=== PATIENT | male | born 1995 | race African-American/Black ===

== ENCOUNTER 2020-09-05 18:30 | Emergency (ER) | payer SELFPAY ==
[2020-09-05 18:35] VITALS: BP 145/92; PULSE 79; RESP 18; TEMP 37.3; O2SAT 100
--- NOTE | 2020-09-05 18:59 | ED.DENTAL ---
HPI - Dental/Oral General Chief complaint: Dental/Oral Stated complaint: tooth ache Time Seen by Provider: 09/05/20 18:34 Source: patient Mode of arrival: ambulatory Limitations: no limitations History of Present Illness HPI Narrative: Patient is a 25-year-old male who presents with dental pain for the last couple of days patient notes aching pain to the left upper posterior molars where is a history of gross decay patient has not seen by for this complaint has not taken anything for his pain pain is worse with eating and drinking on arrival patient resting comfortably in the room in no distress Related Data Allergies Allergy/AdvReac Type Severity Reaction Status Date / Time No Known Allergies Allergy Verified 09/05/20 18:37 Review of Systems Review of Systems: All systems reviewed & are unremarkable except as noted in HPI and below PMFSH Social History Social History (Updated 09/05/20 @ 19:04 by Kade Gtz PA-C) Smoking status: Current every day smoker Exam Narrative: Exam Narrative: GENERAL: Well-appearing, well-nourished, and in no acute distress. HEAD: Normocephalic, atraumatic. EYES: PERRLA and EOMI. ENT: Nares clear, no rhinorrhea or epistaxis. Mucous membranes moist. Dental caries to the posterior left upper molars no erythema or swelling of the gum lines. Uvula midline no trismus or drooling NECK: Supple. No adenopathy or masses. CHEST: Clear to auscultation. No respiratory distress. No wheezes rales or rhonchi HEART: Regular rate and rhythm. No murmur heard. EXTREMITIES: Normal range of motion. No edema. SKIN: Warm, dry, no rash. NEURO: No focal deficits. Alert and oriented x3. PSYCH: Normal mood and affect. Course Course Emergency Course: Patient in the room in no distress aware of case findings treatment plan and diagnosis Vital Signs Vital signs: Vital Signs Temperature 99.1 F 09/05/20 18:35 Pulse Rate 79 09/05/20 18:35 Respiratory Rate 18 09/05/20 18:35 Blood Pressure 145/92 H 09/05/20 18:35 Pulse Oximetry 100 09/05/20 18:35 Temperature 99.1 F 09/05/20 18:35 Pulse Rate 79 09/05/20 18:35 Respiratory Rate 18 09/05/20 18:35 Blood Pressure 145/92 H 09/05/20 18:35 Pulse Oximetry 100 09/05/20 18:35 MDM - Dental/Oral MDM Narrative Medical decision making narrative: Paitents pain and complaint coupled with physical findings are consistant with dentalgia. There are no focal signs of space occupying lesions that are compromising to the ariway. The floor of the mouth is soft with no signs of Ludwigs Angina. Patient is without trismus or drooling and able to swallow secreations. Patient is felt appropriate for discharge home with dental follow up. Discharge Plan Discharge Clinical Impression: Dental abscess Patient Disposition: Home, Self-Care Condition: Stable Instructions: Antibiotic Form, Dental Abscess (ED) Additional Instructions: Follow up with your primary care provider within 1-2 days. Go to ER for shortness of breath, difficulty breathing, chest pain, fever/chills, weakness, nauseau/vomitting, unable to swallow or open the mouth etc. or any other concerns. Take any prescribed medications as directed. If you do not have a drug allergy to tylenol or motrin and can tolerate it then take tylenol or motrin as needed for discomfort/pain. Prescriptions: New chlorhexidine gluconate [Peridex] 0.12 % mouthwash 15 ml mucous membrane BID Qty: 1500 RF: 0 amoxicillin 500 mg capsule 500 mg PO Q8H 10 Days Qty: 30 RF: 0 ibuprofen [IBU] 600 mg tablet 600 mg PO Q6H PRN (Reason: fever or pain) Qty: 7 RF: 0 Follow-up/Referrals: PHYSICIAN,VIBRATION ANALYST [Primary Care Provider] - Dental Referral Line [Outside] [facility] [Outside] [facility] [Outside] [facility] [Outside] Stand Alone Forms: Work/School Release IP
== END 2020-09-05 19:20 | disposition home or self-care (01) ==
PROVIDERS: Emergency Provider Emergency Medicine
DX: K04.7 Periapical abscess without sinus (principal); F17.200 Nicotine dependence, unspecified, uncomplicated
CPT/HCPCS: 99283

== ENCOUNTER 2020-11-13 13:19 | Emergency (ER) | payer SELFPAY ==
[2020-11-13 13:21] VITALS: BP 148/90; PULSE 76; RESP 18; TEMP 36.6; O2SAT 100
--- NOTE | 2020-11-13 13:34 | ED.GENADULT ---
HPI - General Adult General Chief complaint: Dental/Oral Stated complaint: Tooth Pain Time Seen by Provider: 11/13/20 13:33 Source: patient Mode of arrival: ambulatory Limitations: no limitations History of Present Illness HPI narrative: Patient is here for further treatment of left upper dental pain. He was seen here in August for the same and has not yet seen a dentist. He denies any fever or drainage. He has pain to hot and cold. He states that he is just started a job and should have dental insurance in November. Related Data Allergies Allergy/AdvReac Type Severity Reaction Status Date / Time No Known Allergies Allergy Verified 11/13/20 13:23 Review of Systems Review of Systems: All systems reviewed & are unremarkable except as noted in HPI and below PMFSH Social History Social History Smoking status: Current every day smoker Exam Const: General: no acute distress HENMT: Head: normal to inspection Teeth and gingiva: fair dentition Teeth image: 1. caries and fracture Other: No facial swelling no pain with pinna tug. Eyes: Pupils: Equal, round and reactive pupils present Neck: Neck: no lymphadenopathy Resp: Effort & Inspection: normal respiratory effort Cardio: Rate: regular rate Rhythm: regular rhythm Skin: General skin exam: normal color Psych: Mental Status: mental status grossly normal Course Course Emergency Course: Recommend the patient see a dentist at the earliest available date, offered to give him referrals to both the dental schools in the area. Outlined care plan of care of [id number] numbing medicine directly to the site and dental wax to make a temporary filling. There is no need for antibiotics at this time. Continue taking 600 to 800 mg of ibuprofen for pain. Patient agrees. Vital Signs Vital signs: Vital Signs Temperature 36.6 C 11/13/20 13:21 Pulse Rate 76 11/13/20 13:21 Respiratory Rate 18 11/13/20 13:21 Blood Pressure 148/90 H 11/13/20 13:21 Pulse Oximetry 100 11/13/20 13:21 Temperature 36.6 C 11/13/20 13:21 Pulse Rate 76 11/13/20 13:21 Respiratory Rate 18 11/13/20 13:21 Blood Pressure 148/90 H 11/13/20 13:21 Pulse Oximetry 100 11/13/20 13:21 Medical Decision Making Vital Signs Vital Signs: Vital Signs Temperature 36.6 C 11/13/20 13:21 Pulse Rate 76 11/13/20 13:21 Respiratory Rate 18 11/13/20 13:21 Blood Pressure 148/90 H 11/13/20 13:21 Pulse Oximetry 100 11/13/20 13:21 Temperature 36.6 C 11/13/20 13:21 Pulse Rate 76 11/13/20 13:21 Respiratory Rate 18 11/13/20 13:21 Blood Pressure 148/90 H 11/13/20 13:21 Pulse Oximetry 100 11/13/20 13:21 Discharge Plan Discharge Clinical Impression: Dental caries, Toothache Patient Disposition: Home, Self-Care Condition: Stable Instructions: Antibiotic Form, Toothache (ED) Additional Instructions: Please use [id number] numbing medication, saturated Q-tip and placed directly on the site then cover that tooth with dental wax. Continue to take ibuprofen for the pain, you may take 600 every 6 hours or 800 mg every 8 hours. Please take with food to avoid GI upset. Follow-up with dentist at the earliest available date for further treatment. There is a dental school in [facility] affiliated with [facility]. There is another dental school in [place] affiliated with [facility]. Please call and make an appointment. Prescriptions: No Action chlorhexidine gluconate [Peridex] 0.12 % mouthwash 15 ml mucous membrane BID Qty: 1500 RF: 0 ibuprofen [IBU] 600 mg tablet 600 mg PO Q6H PRN (Reason: fever or pain) Qty: 7 RF: 0 Follow-up/Referrals: PHYSICIAN,MORTGAGE ACCOUNTING CLERK [Primary Care Provider] - Stand Alone Forms: Work/School Release IP Time of Disposition: 13:54
== END 2020-11-13 13:50 | disposition home or self-care (01) ==
PROVIDERS: Emergency Provider Emergency Medicine
DX: K02.9 Dental caries, unspecified (principal); F17.200 Nicotine dependence, unspecified, uncomplicated
CPT/HCPCS: 99281

== ENCOUNTER 2020-12-16 15:33 | Emergency (ER) | payer SELFPAY ==
--- NOTE | ~2020-12-16 | XR_ITS ---
EXAMINATION: XR chest 2V DATE: 12/16/2020 16:02 INDICATION: Left chest pain. TECHNIQUE: Frontal and lateral views of the chest were obtained. COMPARISON: None. FINDINGS: There is mild scarring at the lung apices. No pleural effusion or pneumothorax. The heart s ize is normal. IMPRESSION: 1. Mild scarring at the lung apices. Reviewed, dictated and finalized at location A. [facility]UCK[facility]
--- NOTE | 2020-12-16 15:34 | ECG_ITS ---
Measurements Intervals [place] Rate: 79 P: 66 ND: 169 QRS: 96 QRSD: 94 T: 51 QT: 370 QTc: 426 Interpretive Statements SINUS RHYTHM MINIMAL Q WAVES- INFERIOR LEADS BASELINE ARTIFACT- I, II, III, AVR, AVL, AVF, V1-V6 BORDERLINE ECG Electronically Signed On 12-16-2020 16:45:48 GUEST RELATIONS AGENT by Ronald Blackwood D.O.
[2020-12-16 15:47] VITALS: BP 154/88; PULSE 84; RESP 15; TEMP 36.8; O2SAT 100
[2020-12-16 15:53] LABS: Basophils Percent Auto 0.5 % (0.2-1.2); Eosinophils Absolute Auto 0.1 K/mm3 (0-0.3); Eosinophils Percent Auto 0.6 % (0-4.4); Hematocrit 42.3 % (42.0-52.0); Hemoglobin 14.6 g/dL (14.0-18.0); Immature Granulocyte Absolute 0.02 K/mm3 (0.00-0.031); Immature Granulocyte Percent A 0.2 % (0-0.5); Immature Platelet Fraction Pct 7.3 % (0.9-11.2); Lymphocytes Absolute Auto 3.07 K/mm3 (0.9-3.2); Lymphocytes Percent Auto 34.9 % (18.3-44.2); Mean Corpuscular HGB Conc 34.5 g/dl (32-36); Mean Corpuscular Hemoglobin 34.3 pg (26-34); Mean Corpuscular Volume 99.3 fl (80-100); Mean Platelet Volume 11.1 fl (7.4-10.4); Monocytes Absolute Auto 0.5 K/mm3 (0.1-0.6); Monocytes Percent Auto 5.6 % (2.6-8.5); Neutrophils Absolute Auto 5.1 K/mm3 (1.3-6.7); Neutrophils Percent Auto 58.2 % (45.5-73.1); Platelet Count Result 140 k/mm3 (150-375); Red Blood Count 4.26 M/mm3 (4.6-6.20); Red Cell Distribution Width 12.7 % (11.5-14.5); White Blood Count 8.8 K/mm3 (4.5-10.0)
[2020-12-16 16:00] LABS: INR 0.9; Prothrombin Time 12.7 Seconds (11.1-14.7)
[2020-12-16 16:01] LABS: Partial Thromboplastin Time 24.5 SECONDS (22.3-36.8)
[2020-12-16 16:03] LABS: Anion Gap 7 mmol/L (8-16); Blood Urea Nitrogen 17 mg/dL (9-20); Calcium 9.5 mg/dL (8.4-10.2); Carbon Dioxide 28 mmol/L (22-30); Chloride 102 mmol/L (98-107); Estimated CRCL calculation 98 ml/min; Estimated Glomerular Filt Rate > 60; Glucose 83 mg/dL (75-110); Potassium 3.6 mmol/L (3.4-5.0); Sodium 137 mmol/L (137-145)
[2020-12-16] MEDS: ASPIRIN 81 MG CHEWABLE TABLET 324 MG PO (16:11)
[2020-12-16 16:15] LABS: Troponin I < 0.012 ng/mL (0.000-0.034)
--- NOTE | 2020-12-16 17:24 | ED.CHESTPAIN ---
HPI - Chest Pain General Chief Complaint: Chest Pain Stated Complaint: chest pain, arm pain Time Seen by Provider: 12/16/20 17:00 Source: patient Mode of arrival: ambulatory Limitations: no limitations History of Present Illness HPI narrative: This is a 25 year old male that presents to the ER for chest pain x 3 hours. Reports the pain started while he was at work. It has been constant, but improved since onset. The pain is achy in nature. Also reports pain in his right hip that has been present for a couple of weeks. Reports his girlfriend recently has a UTI and was worried he may have one too. Denies fever, cough, shortness of breath, abdominal pain, vomiting, dysuria or hematuria. Related Data Allergies Allergy/AdvReac Type Severity Reaction Status Date / Time No Known Allergies Allergy Verified 12/16/20 15:52 Review of Systems Review of Systems: Narrative: CONSTITUTIONAL: Denies fever CARDIOVASCULAR: Reports chest pain. Denies edema. RESPIRATORY: Denies cough or dyspnea. GASTROINTESTINAL: Denies abdominal pain, nausea, vomiting GENITOURINARY: Denies dysuria or hematuria. SKIN: Denies rash MUSCULOSKELETAL: Reports back pain, joint pain, and myalgia. NEUROLOGIC: Denies numbness, or weakness. All systems reviewed & are unremarkable except as noted in HPI and below PMFSH Social History Social History (Updated 12/16/20 @ 17:28 by Kayleigh Loza PA-C) Smoking status: Current every day smoker Substance use: current Substance use type: marijuana Exam Narrative: Exam Narrative: GENERAL: Well-appearing, well-nourished, and in no acute distress. HEAD: Normocephalic, atraumatic. EYES: EOMI. ENT: Mucous membranes moist. Oropharynx without tonsillar hypertrophy exudate or other lesions. NECK: Supple. No adenopathy or masses. CHEST: Clear to auscultation. No respiratory distress. No wheezes rales or rhonchi HEART: Regular rate and rhythm. No murmur heard. Normal peripheral pulses. ABDOMEN: Soft, nontender, nondistended, normal active bowel sounds. EXTREMITIES: Normal range of motion. No edema. SKIN: Warm, dry, no rash. NEURO: No focal deficits. Alert and oriented x3. PSYCH: Normal mood and affect Course Vital Signs Vital signs: Vital Signs Temperature 98.2 F 12/16/20 15:47 Pulse Rate 84 12/16/20 15:47 Respiratory Rate 15 12/16/20 15:47 Blood Pressure 154/88 H 12/16/20 15:47 Pulse Oximetry 100 12/16/20 15:47 Temperature 98.2 F 12/16/20 15:47 Pulse Rate 81 12/16/20 18:57 Respiratory Rate 16 12/16/20 18:57 Blood Pressure 144/78 H 12/16/20 18:57 Pulse Oximetry 100 12/16/20 18:57 MDM - Chest Pain MDM Narrative Medical decision making narrative: Patient presents the emergency department for an episode of chest pain today. Have mostly resolved on arrival to ED. He is afebrile and nontoxic-appearing. Vitals are stable. CBC and metabolic panel without concerning findings. EKG is without concerning changes. Baseline and 3-hour troponin are negative. Chest x-ray without acute findings. Patient was also reporting some pain in his right hip/flank area. Seems to be more musculoskeletal in nature. No signs of infection or blood in the urine. Patient was updated on case findings. His heart score is a 1. He is stable and felt appropriate for further outpatient evaluation. He was given warnings to return to the ER Lab Data Attestation: I reviewed the patient's lab results. Result diagrams: 12/16/20 15:43 12/16/20 15:43 Labs: Lab Results 12/16/20 12/16/20 12/16/20 Range/Units 15:43 15:43 15:43 WBC 8.8 (4.5-10.0) K/mm3 RBC 4.26 L (4.6-6.20) M/mm3 Hgb 14.6 (14.0-18.0) g/dL Hct 42.3 (42.0-52.0) % MCV 99.3 (80-100) fl MCH 34.3 H (26-34) pg MCHC 34.5 (32-36) g/dl RDW 12.7 (11.5-14.5) % Plt Count 140 L (150-375) k/mm3 MPV 11.1 H (7.4-10.4) fl Immature Gran % (Auto) 0.2 (0-0.5) % Neut % (Auto) 5
[2020-12-16 18:43] LABS: Add Urine Microscopic? YES; Appearance Urine Clear (Clear); Bilirubin Urine Negative (Negative); Blood Urine Negative (Negative); Color Urine Yellow (Yellow); Glucose Urine UA Negative (Negative); Ketones Urine 1+ mg/dL (Negative); Leukocyte Esterase Ur Negative LEU/UL (Negative); Mucus Urine Rare /lpf; Nitrate Urine Negative (Negative); Protein Urine 1+ mg/dL (Negative); RBC Urine 0-2 /hpf (0-2); Specific Grav Ur 1.027 (1.001-1.035); WBC Urine 0-3 /hpf
[2020-12-16 18:57] VITALS: BP 144/78; PULSE 81; RESP 16; O2SAT 100
[2020-12-16 19:18] LABS: Troponin I < 0.012 ng/mL (0.000-0.034)
[2020-12-16 20:32] VITALS: BP 140/94; PULSE 61; RESP 18; O2SAT 100
== END 2020-12-16 20:34 | disposition home or self-care (01) ==
PROVIDERS: Physician Assistant; Emergency Provider Emergency Medicine
DX: R07.9 Chest pain, unspecified (principal); F17.210 Nicotine dependence, cigarettes, uncomplicated; R94.31 Abnormal electrocardiogram [ECG] [EKG]
CPT/HCPCS: 36415; 71046; 80048; 81001; 84484; 85025; 85055; 85610; 85730; 93005; 99284; A9270

== ENCOUNTER 2022-07-24 08:24 | Emergency (ER) | payer BC, SELFPAY ==
[2022-07-24 08:27] VITALS: BP 146/80; PULSE 104; RESP 16; TEMP 38; O2SAT 100
[2022-07-24 09:28] LABS: SARS-CoV-2 RNA PCR Positive
--- NOTE | 2022-07-24 09:39 | ED.GENADULT ---
HPI - General Adult General Chief complaint: Unspecified Stated complaint: body aches, joint pain, headache Time Seen by Provider: 07/24/22 08:30 History of Present Illness HPI narrative: 27-year-old male presenting to the emergency department for evaluation of sore throat body aches subjective fever. Patient states that his symptoms started yesterday. Related Data Allergies Allergy/AdvReac Type Severity Reaction Status Date / Time No Known Allergies Allergy Verified 12/16/20 15:52 Review of Systems Review of Systems: CONSTITUTIONAL: See HPI EYES: Denies visual changes, redness, or discharge. ENT: Denies rhinorrhea, congestion, sore throat, or otalgia. CARDIOVASCULAR: Denies chest pain, palpitations, or edema. RESPIRATORY: See HPI GASTROINTESTINAL: Denies abdominal pain, nausea, vomiting, or diarrhea. GENITOURINARY: Denies dysuria or hematuria. SKIN: Denies rash or itching. MUSCULOSKELETAL: Denies back pain, joint pain, or myalgia. NEUROLOGIC: Denies headache, numbness, or weakness. [facility] Social History Social History (Updated 12/16/20 @ 17:28 by Kayleigh Loza PA-C) Smoking status: Current every day smoker Substance use: current Substance use type: marijuana Exam Narrative: APPEARANCE: Ill-appearing HEAD: normocephalic, atraumatic. EYES: PERRLA/EOMI, conjunctivae clear. NOSE: Normal no drainage EARS:TMS clear with good light reflex. THROAT: Pharynx clear, no exudate. NECK: Supple. No adenopathy, no masses. RESPIRATORY: Airway patent, respirations nonlabored. Clear to auscultation bilaterally, no rales, rhonchi, wheezing. CARDIOVASCULAR: Regular rate and rhythm without murmurs rubs or gallops. ABDOMINAL: Soft, nontender, nondistended, normal bowel sounds MUSCULOSKELETAL: Moves all extremities. Strength/ROM intact, No edema, No calf tenderness. NEURO: Alert. Cranial nerves II through XII intact. Grossly intact SKIN: Warm, dry. Normal Color Course Course Emergency Course: Patient was updated on the results of his diagnosis of COVID. Vital Signs Vital signs: Vital Signs Temperature 100.4 F H 07/24/22 08:27 Pulse Rate 104 H 07/24/22 08:27 Respiratory Rate 16 07/24/22 08:27 Blood Pressure 146/80 H 07/24/22 08:27 Pulse Oximetry 100 07/24/22 08:27 Temperature 100.4 F H 07/24/22 08:27 Pulse Rate 76 07/24/22 10:11 Respiratory Rate 13 07/24/22 10:11 Blood Pressure 125/66 07/24/22 10:11 Pulse Oximetry 100 07/24/22 10:11 Medical Decision Making Vital Signs Vital Signs: Vital Signs Temperature 100.4 F H 07/24/22 08:27 Pulse Rate 104 H 07/24/22 08:27 Respiratory Rate 16 07/24/22 08:27 Blood Pressure 146/80 H 07/24/22 08:27 Pulse Oximetry 100 07/24/22 08:27 Temperature 100.4 F H 07/24/22 08:27 Pulse Rate 76 07/24/22 10:11 Respiratory Rate 13 07/24/22 10:11 Blood Pressure 125/66 07/24/22 10:11 Pulse Oximetry 100 07/24/22 10:11 Lab Data Labs: Lab Results 07/24/22 Range/Units 08:47 SARS-CoV-2 RNA (RT-PCR) Positive A Strep Screen Presumptive Negative *(Reference Range: Negative)* Discharge Plan Discharge Clinical Impression: COVID Patient Disposition: Home, Self-Care Condition: Stable Instructions: Antibiotic Form, COVID-19 (Coronavirus Disease 2019) (ED) Additional Instructions: Tylenol and ibuprofen for fever and body aches. Tessalon Perles for cough. Albuterol inhaler for shortness of breath. Quarantine as directed. Have close follow-up with your primary care physician. Prescriptions: New benzonatate 100 mg capsule 100 mg PO TID PRN (Reason: cough) Qty: 20 0RF albuterol sulfate 90 mcg/actuation HFA aerosol inhaler 1 puff inhalation QID PRN (Reason: shortness of breath or wheezing) Qty: 6.7 0RF No Action chlorhexidine gluconate [Peridex] 0.12 % mouthwash 15 ml mucous membrane BID Qty: 1500 0RF ibuprofen [IB
[2022-07-24 10:11] VITALS: BP 125/66; PULSE 76; RESP 13; O2SAT 100
== END 2022-07-24 10:13 | disposition home or self-care (01) ==
PROVIDERS: Emergency Provider Emergency Medicine
DX: U07.1 COVID-19 (principal); F12.90 Cannabis use, unspecified, uncomplicated
CPT/HCPCS: 87081; 87880; 99283; C9803; U0003; U0005

== ENCOUNTER 2023-12-26 15:36 | Emergency (ER) | payer OTHER, SELFPAY ==
--- NOTE | 2023-12-26 15:38 | ED.MALEGU ---
HPI - Male Genitourinary General Chief complaint: Urogenital-Male Stated complaint: uti symptoms Time Seen by Provider: 12/26/23 15:49 Source: patient, RN notes reviewed and old records reviewed Mode of arrival: ambulatory Limitations: no limitations History of Present Illness HPI Narrative: 28-year-old male presents to the [facility] with complaints urinary irritation. States it is not painful but he feels irritated when he urinates. Denies any penile discharge. Symptoms x3 days. Has been taking ?left over amoxicillin the last week. Denies any abdominal pain, fevers Denies any rashes Recently had unprotected sex No CVA tenderness Onset (ago): day(s) (3) Related Data Sexually active: Yes Allergies Allergy/AdvReac Type Severity Reaction Status Date / Time No Known Allergies Allergy Verified 12/26/23 15:50 Review of Systems Review of Systems: All systems reviewed & are unremarkable except as noted in HPI and below Constitutional: Constitutional: Reports no additional constitutional complaints Eyes: Eyes: Reports no additional eye complaints ENT: Reports system reviewed and no additional complaints, except as documented Cardiovascular: Cardiovascular: Reports no additional cardiovascular complaints, Denies chest pain and Denies dyspnea Respiratory: Respiratory: Reports no additional respiratory complaints, Denies chest congestion, Denies cough and Denies dyspnea Gastrointestinal: Gastrointestinal: Reports no additional gastrointestinal complaints, Denies abdominal pain, Denies nausea and Denies vomiting Genitourinary: Genitourinary: Reports as per HPI, Denies genital lesions, Denies genital pain, Reports dysuria, Denies flank pain, Denies penile discharge, Denies scrotal swelling, Denies testicular pain, Denies urinary frequency and Denies urinary hesitancy Musculoskeletal: Musculoskeletal: Reports no additional musculoskeletal complaints Integumentary/Breasts: Skin/Breast: Reports system reviewed and no additional complaints, except as docu Neurologic: Reports system reviewed and no additional complaints, except as documented Psychiatric: Psychiatric: Reports no additional psychiatric complaints Allergic/Immunologic: Allergic/Immunologic: Reports no additional allergic/immunologic complaints PMFSH Social History Social History Smoking status: Current every day smoker Substance use: current Substance use type: marijuana Comments At the time of my signature, I reviewed and agree with the nursing past medical, surgical, social, and family history. There is no relevant family history pertinent to the patient complaint. Exam Const: General: cooperative, healthy appearing, comfortable, no acute distress, well developed, alert and well nourished Nutritional Appearance: well nourished Orientation/consciousness: patient oriented x3 Limitations: no limitations HENMT: Head: normal to inspection Ears: hearing grossly normal bilaterally and external ears normal Face/Nose/Sinus: Normal external nose present, Normal nares present, Normal nasal mucous membranes and turbinates present, normal facial exam and face symmetric Face and sinus: normal facial exam and face symmetric Eyes: General: appearance normal, both eyes and all related structures Alignment and Position: alignment normal Periorbital: periorbital findings normal Pupils: Equal, round and reactive pupils present EOM: EOMs intact bilaterally Neck: Neck: normal visual inspection, full ROM, no lymphadenopathy and no meningeal signs Chest: Chest palpation & inspection: normal inspection of the chest Resp: Effort & Inspection: normal respiratory effort and able to speak in complete sentences Cardio: Rate: regular rate Rhythm: regular rhythm GI: GI Palp: No abdominal tenderness, Yes Soft to palpation, No Tenderness to palpation present (GI) and No Guarding due to palpation present (GI) : Genera
[2023-12-26 15:48] VITALS: BP 121/73; PULSE 84; RESP 18; TEMP 37.3; O2SAT 99
[2023-12-26] MEDS: cefTRIAXone 500 MG, LIDOCAINE HCL 1% LOCAL INJ 1 ML IM (16:04)
[2023-12-26 20:25] LABS: Trichomonas Vag PCR NOT DETECTED (NOT DETECTE)
[2023-12-26 20:48] LABS: Chlamydia trachomatis NOT DETECTED (NOT DETECTE); Neisseria gonorrhoeae PCR NOT DETECTED (NOT DETECTE)
== END 2023-12-26 16:27 | disposition home or self-care (01) ==
PROVIDERS: Emergency Provider Nurse Practitioner
DX: R30.0 Dysuria (principal); F17.210 Nicotine dependence, cigarettes, uncomplicated
CPT/HCPCS: 87491; 87591; 87661; 96372; 99213; G0463; J0696

== ENCOUNTER 2024-04-07 07:54 | Emergency (ER) | payer SELFPAY ==
[2024-04-07 08:24] VITALS: BP 139/88; PULSE 68; RESP 18; TEMP 36.9; O2SAT 100
--- NOTE | 2024-04-07 08:32 | ED.MALEGU ---
HPI - Male Genitourinary General Chief complaint: Urogenital-Male Stated complaint: uti Time Seen by Provider: 04/07/24 08:13 History of Present Illness HPI Narrative: Patient presents with dysuria and penile drainage, he has had similar symptoms in the past, was told that had a UTI. He is currently sexually active and monogamous and denies any concern for STDs, no systemic symptoms Related Data Allergies Allergy/AdvReac Type Severity Reaction Status Date / Time No Known Allergies Allergy Verified 04/07/24 08:22 Review of Systems Review of Systems: All systems reviewed & are unremarkable except as noted in HPI and below PMFSH Social History Social History Smoking status: Current every day smoker Substance use: current Substance use type: marijuana Exam Narrative: EXAMINATION OF ORGAN SYSTEMS/BODY AREAS: Constitutional: Vital signs per nursing GENERAL:[No acute distress, non-toxic appearing.] HEAD: Normal with no signs of head trauma. EYES: EOMI, conjunctiva normal ENT: Hearing grossly intact LUNGS: Nonlabored breathing. HEART: [Regular rate and rhythm] ABD: [Soft], [nontender to palpation] : No penile lesions; there is some milky discharge EXT: Normal range of motion SKIN: [No rashes or lesions.] NEURO: [Alert and oriented x 3. No gross focal sensory or strength deficits.] PSYCH: Normal affect Course Vital Signs Vital signs: Vital Signs Temperature 98.5 F 04/07/24 08:24 Pulse Rate 68 04/07/24 08:24 Respiratory Rate 18 04/07/24 08:24 Blood Pressure 139/88 04/07/24 08:24 Pulse Oximetry 100 04/07/24 08:24 Oxygen Delivery Room Air 04/07/24 08:24 Temperature 98.5 F 04/07/24 08:24 Pulse Rate 68 04/07/24 08:24 Respiratory Rate 18 04/07/24 08:24 Blood Pressure 139/88 04/07/24 08:24 Pulse Oximetry 100 04/07/24 08:24 Oxygen Delivery Room Air 04/07/24 08:24 MDM - Male Genitourinary MDM Narrative Medical decision making narrative: [age]haynn[age][id number][id number]-old patient presents to the emergency department for dysuria and penile discharge. Denies any systemic symptoms. Exam shows penile discharge. GC/CT were sent for testing. I discussed with patient that the symptoms are most concerning for STD and a much less likely UTI especially given his age and risk factors. Patient adamantly denies any possibility of an STD, I did offer him antibiotic empirically for STD but he does not want this, he wants to be treated for UTI instead. I did offer for him to stay for the results but he needs to go to work. I did let him know he should call back in 2 or 3 days for the final results or if his symptoms do not improve, and that he should discuss with his partner for testing and treatment also. Primary care provider referral given Patient can return to ER for any worsening symptoms. Lab Data Labs: Lab Results 04/07/24 Range/Units 08:22 Urine Color Yellow (Yellow) Urine Appearance Turbid H (Clear) Urine pH 8.5 (5.0-9.0) Ur Specific [place] 1.023 (1.001-1.035) Urine Protein Negative (Negative) mg/dL Urine Glucose (UA) Negative (Negative) mg/dL Urine Ketones Negative (Negative) mg/dL Ur Blood (Man) Negative (Negative) Urine Nitrate Negative (Negative) Urine Bilirubin Negative (Negative) Urine Urobilinogen 1.0 (<2.0) mg/dL Leukocyte Esterase Rfl 2+ H (Negative) TYLER/UL Urine RBC 0-2 (0-2) /hpf Urine WBC 51-100 H (0-3) /hpf Ur Squamous Epith Cells None seen (Few) /hpf Urine Bacteria None seen /hpf Urine Casts 0-2 C. trachomatis (PCR) Not detected (NOT DETECTE) N. gonorrhoeae (PCR) Not detected (NOT DETECTE) Urine Characteristics Cloudy Discharge Plan Discharge Clinical Impression: Discharge from penis Patient Disposition: Home, Self-Care Condition: Stable Instructions
[2024-04-07] MEDS: SULFAMETHOXAZOLE/TRIMETHOPRIM 800/160 MG DS TABLET 1 TAB PO (08:33)
[2024-04-07 08:41] LABS: Appearance Urine Turbid (Clear); Bacteria Urine None Seen /hpf; Bilirubin Urine Negative (Negative); Blood Urine Negative (Negative); Color Urine Yellow (Yellow); Glucose Urine UA Negative (Negative); Ketones Urine Negative (Negative); Leukocyte Esterase Ur 2+ LEU/UL (Negative); Nitrate Urine Negative (Negative); Non Pathogenic Casts 0-2; Protein Urine Negative (Negative); RBC Urine 0-2 /hpf (0-2); Specific Grav Ur 1.023 (1.001-1.035); Squamous Epithelial Cell Urine None Seen /hpf (Few); WBC Urine 51-100 /hpf (0-3); pH Urine 8.5 (5.0-9.0)
[2024-04-07 08:42] LABS: Add Urine Microscopic? YES
[2024-04-07 10:03] LABS: Chlamydia trachomatis NOT DETECTED (NOT DETECTE); Neisseria gonorrhoeae PCR NOT DETECTED (NOT DETECTE)
== END 2024-04-07 09:05 | disposition home or self-care (01) ==
LOC: ANHED 08:44
PROVIDERS: Emergency Provider Emergency Medicine
DX: R36.9 Urethral discharge, unspecified (principal); F17.200 Nicotine dependence, unspecified, uncomplicated
CPT/HCPCS: 81001; 87086; 87491; 87591; 99283; A9270

== ENCOUNTER 2024-09-20 16:52 | Emergency (ER) | payer SELFPAY ==
--- NOTE | 2024-09-20 16:53 | ED.DENTAL ---
HPI - Dental/Oral General Chief complaint: Dental/Oral Stated complaint: Tooth Ache Time Seen by Provider: 09/20/24 16:53 Source: patient Mode of arrival: ambulatory Limitations: no limitations History of Present Illness HPI Narrative: Hubert is a 29-year-old male patient presenting to the clinic today with complaints of a right upper posterior toothache x1 week. Denies any fever chills. Has been taking ibuprofen Tylenol for his pain nothing seems to be helping. Related Data Allergies Allergy/AdvReac Type Severity Reaction Status Date / Time No Known Allergies Allergy Verified 09/20/24 16:53 Review of Systems Review of Systems: Pertinent positives per HPI. Patient denies any fever, chills, rash, headache, visual changes, dizziness, cough, runny nose, sore throat, shortness of breath, chest pain, palpitations, nausea, vomiting, diarrhea, constipation, abdominal pain, or any urinary issues. PMFSH Social History Social History Smoking status: Current every day smoker Substance use: current Substance use type: marijuana Comments At the time of my signature, I reviewed and agree with the nursing past medical, surgical, social, and family history. There is no relevant family history pertinent to the patient complaint. Exam Narrative: General: Well-developed, well nourished, in no apparent distress Head: Normocephalic, atraumatic Eyes: Pupils equally round and reactive to light bilaterally, EOM intact, sclera and conjunctive clear, no discharge, lids normal Ears: TMs intact and clear, ear canals clear, no drainage, grossly hearing normal. Nose: Nares patent, no discharge, no inflammation, no sinus tenderness. Mouth: Oropharynx without lesions or masses, poor dentition, MMM. Decayed right upper number 2 with localized gingival swelling Neck: Supple, trachea midline, no enlargement of anterior or posterior cervical nodes, no thyroid masses or goiter palpable. Cardio: Regular rate and rhythm, s1 and s2 normal, no murmur appreciated. Resp: Clear to auscultation bilaterally anteriorly and posteriorly, no rhonchi, rales, wheezing or rubs Course Course Emergency Course: Portions of this record may have been created with voice recognition software. Level of Care: Express Care Visit Vital Signs Vital signs: Vital signs reviewed MDM - Dental/Oral MDM Narrative Medical decision making narrative: At the time of visit patient is resting comfortably on the exam table. Patient appears to be nontoxic. Plan: I suspect patient has a dental infection to the right 2 tooth. Prescription for amoxicillin was sent to the pharmacy. Supportive measures were discussed with the patient and they voiced understanding discharge instructions and agrees to treatment plan. Return precautions reviewed Differential Diagnosis Differential diagnosis: Likely gingival abscess, dental caries, toothache, dental abscess, fracture of tooth, aphthous ulcer and other Discharge Plan Discharge Clinical Impression: Toothache Patient Disposition: Home, Self-Care Condition: Stable Instructions: Antibiotic Form, Toothache (ED) Additional Instructions: Take amoxicillin as prescribed May apply Orajel to the affected area to help alleviate pain May take 1 g of Tylenol and 800 mg of ibuprofen together every 8 hours May apply warm or compress to the affected area to help alleviate pain Follow-up with your dentist as soon as possible Prescriptions: New amoxicillin 875 mg tablet 875 mg PO Q12H 10 Days Qty: 20 0RF Follow-up/Referrals: UNKNOWN,DOCTOR [Non-Staff] - Time of Disposition: 17:09 Quality NIHSS Nursing Documentation ED NIHSS nursing documentation: reviewed/agree
[2024-09-20 17:01] VITALS: BP 120/66; PULSE 70; RESP 16; TEMP 36.4; O2SAT 100
== END 2024-09-20 17:12 | disposition home or self-care (01) ==
PROVIDERS: Emergency Provider Nurse Practitioner Family
DX: K08.89 Other specified disorders of teeth and supporting structures (principal); F17.200 Nicotine dependence, unspecified, uncomplicated; F12.90 Cannabis use, unspecified, uncomplicated
CPT/HCPCS: 99213; G0463